=== PATIENT | male | born 1930 | race Hispanic/Latino ===

== ENCOUNTER 2019-01-30 07:35 | Day surgery (SDC) | payer MEDICARE, OTHER ==
[2019-01-30] MEDS ORDERED: NACL 0.9% 500 ML 500 ML IV SCH (09:00)
[2019-01-30] MEDS ORDERED: ECOTRIN PO ONE (09:00)
[2019-01-30 09:18] LABS: INR 1.03 (0.87-1.13)
[2019-01-30] MEDS ORDERED: HEPARIN/NS 5000 UNIT/500ML(CATH LAB) 1,000 ML IR ONE (10:07)
[2019-01-30] MEDS ORDERED: CALAN ONE (10:07)
[2019-01-30] MEDS ORDERED: HEPARIN 10,000 UNITS/10 ML ONE (10:07)
[2019-01-30] MEDS ORDERED: NITROGLYCERIN SYRINGE 0 ML ONE (10:08)
[2019-01-30] MEDS: SUBLIMAZE ONE ×2 (10:50→10:52)
[2019-01-30] MEDS: VERSED ONE ×2 (10:50→10:52)
[2019-01-30] MEDS: XYLOCAINE 2% INFILTRATI ONE ×2 (10:53→10:58)
--- NOTE | 2019-01-30 13:03 | Short Stay Summary ---
Short Stay Documentation Date of service: 01/30/19 - History H&P: obtained from office - Allergies and Medications Current Medications: Allergies No Known Allergies Allergy (Unverified 01/30/19 07:35) Home Medications Medication Instructions Recorded Confirmed Last Taken Type Ramipril 10 mg PO DAILY 01/30/19 01/30/19 01/29/19 History 1 tab Timolol 0.5% 0.5 mg OU BID 01/30/19 01/30/19 01/29/19 History amLODIPine 5 mg PO DAILY 01/30/19 01/30/19 01/29/19 History 1 tab Active Medications Sodium Chloride (Nacl 0.9% 500 Ml) 500 mls @ 50 mls/hr IV DIRECT SUNSHINE Stop: 01/30/19 18:59 Last Admin: 01/30/19 10:50 Dose: 50 mls Documented by: - Brief post op/procedure progress note Date of procedure: 01/30/19 Pre-op diagnosis: CAD Post-op diagnosis: same Procedure: [facility] - see dictated cath report Anesthesia: local Estimated blood loss: none Condition: stable - Disposition Condition at discharge: Good Disposition: [id number] TO HOME OR SELFCARE - Discharge Diagnoses (1) CAD (coronary artery disease) Status: Chronic (2) History of coronary artery bypass graft Status: Chronic Short Stay Discharge Plan Activity: advance as tolerated Wound: open to air, keep clean and dry, per your surgeon's advice Follow up with: MELANIE SPENCER MD [Primary Care Provider] - 7 Days LUCAS BEAL MD [Staff Physician] - 7 Days
--- NOTE | 2019-01-30 14:27 | Cardiac Catherization Report ---
INDICATIONS FOR PROCEDURE: The patient is an 88-year-old white gentleman with a history of ulceration in the right foot and status post bilateral carotid endarterectomy in the past, was noted to have abnormal PET stress MPI. Hence, scheduled for cardiac catheterization for definitive diagnosis and treatment. Procedure was discussed with the patient and his . They are agreeable to proceed with cardiac catheterization. They are aware of the procedure, potential complications and alternatives of therapy available. DESCRIPTION OF PROCEDURE: The patient was brought to the catheterization laboratory. The patient was evaluated for moderate sedation and was felt to be appropriate candidate for moderate sedation and received IV Versed and fentanyl. Subsequently, right groin area was anesthetized with local anesthesia, right femoral artery puncture was made using 21-gauge arterial puncture needle. A 5-Serbian slender radial sheath was introduced. A 6-Serbian multipurpose catheter was used to obtain the left ventriculogram done in COUCH and NEPALESE projection using hand injection. Angiograms of the right coronary artery were obtained in multiple views. Subsequently, JL3.5 diagnostic catheter was used to obtain the angiograms of the left coronary artery. A 5-Serbian mammary catheter was used to obtain the angiograms of the left internal mammary graft. Attempt was made to locate the vein grafts; however, could not engage the vein grafts. Hence, an ascending aortogram was performed using power injector. Total of 45 mL at 15 mL per second. At the end of the procedure, catheter and sheath were removed and good hemostasis was achieved with pressure bandage. No untoward complications were noted. The patient will be hydrated with IV fluids. The patient tolerated the procedure. The patient's IV sedation started at 10:50 a.m. and ended at 11:40 a.m. The patient tolerated sedation well without any side effects. Able to communicate normally, move all the extremities and breathe normally at the end of the procedure. Following findings were noted. HEMODYNAMICS: 1. Opening aortic pressure 165/64. Left ventricular pressure 165/12. No gradient across the aortic valve. Estimated ejection fraction 45-50%. Left ventriculogram done in COUCH projection and NEPALESE projection using hand injection showed akinesis of the apical part of the left ventricle, rest of the ventricle moving well. Ejection fraction was felt to be around 45-50%. Mitral regurgitation could not be evaluated because of limited amount of dye injected. 2. Right coronary artery dominant vessel shows moderate proximal disease and severe mid to distal disease approaching 80-90%. This is a very large vessel with large LV branches and PDA. Distally RCA without significant disease. There is no competitive flow noted in the distal RCA suggesting vein graft might have been occluded. 3. Left coronary artery, left main shows mild disease. LAD shows very tight 90% focal proximal lesion and 90% long proximal diagonal lesion in addition to occluded LAD in the mid part. Circumflex artery showed significant ostial lesion approaching 70% or so and also there is 60% long lesion noted in the mid circumflex. No competitive flow noted in the marginal branch and there is no evidence of patent vein grafts on ascending aortogram. 4. Left internal mammary graft to the LAD is widely patent. LAD itself has no significant disease distally, filling the RCA retrogradely. Ascending aortogram was performed in NEPALESE projection using 45 mL at 15 mL per second. This shows dilated ascending aorta, but no evidence of any patent vein grafts. FINAL IMPRESSION: 1. Apical infarct with mild LV dysfunction, ejection fraction 45-50%. 2. 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 Large dominant RCA shows severe disease in the mid/distal part and also there is a significant proximal LAD lesion, which is supplying a fairly large diagonal branch, which is diseased proximally. Circumflex artery also is patent, but has significant ostial and mid lesions. At this time, considering the above angiographic pictures and the patient is being asymptomatic, medical therapy can be continued. However, if the patient becomes symptomatic after revascularization of arterial circulation to the foot, may consider intervention of the RCA and proximal LAD and diagonal lesions. However, these are high risk lesions considering these are chronic lesions and calcified lesions. The patient is an 88-year-old. The patient also has underlying dementia according to the . Discussed at length with the patient and his . They understand. We will discuss with Dr. Tawny Larios, his primary crystal gazer. The patient tolerated the procedure well and no untoward complications were noted. No hematoma noted in the right groin. JOB# [id number] JOEY/WENDY HALEY
[2019-01-30 15:51] VITALS: BP 112/59
== END 2019-01-30 07:36 | disposition home or self-care (01) ==
LOC: CATHLABREC 07:35
PROVIDERS: ATTEND Internal Medicine
DX: I25.10 Atherosclerotic heart disease of native coronary artery without angina pectoris (principal); H40.9 Unspecified glaucoma; I10 Essential (primary) hypertension; Z98.890 Other specified postprocedural states; Z79.899 Other long term (current) drug therapy; Z95.1 Presence of aortocoronary bypass graft; Z79.01 Long term (current) use of anticoagulants
CPT/HCPCS: 85610; 85730; 93005; 93010; 93459; 93567; 99156; 99157; C1769; C1894; J1644; J2250; J3010; J7040; Q9967